=== PATIENT | male | born 1940 | race Two or more races ===

== ENCOUNTER 2020-06-11 05:32 | Inpatient (IN) | payer OTHER ==
[~2020-06-11] VITALS: Ht 172.7 cm; Wt 76.4 kg
[2020-06-11] MEDS ORDERED: ASPirin 81 mg TAB PO ONE ×2 (07:00)
[2020-06-11] MEDS ORDERED: MORPHINE SULF INJ 2 MG/ML SYRINGE 1ML IV ONE ×2 (07:15→08:30)
[2020-06-11] MEDS ORDERED: ONDANSETRON HCL 4 MG/2 ML VIAL IV ONE ×2 (07:15→08:30)
[2020-06-11 07:52] LABS: Basophils # (auto) 0 10 ^3/uL (0-0.2); Basophils % (auto) 0.1 % (0.0-2.0); Eosinophils # (auto) 0 10 ^3/uL (0-0.8); Eosinophils % (auto) 0.2 % (0.0-7.0); Hematocrit 48.7 % (41.0-53.0); Hemoglobin 17.1 g/dL (13.5-17.5); Lymphocytes # (auto) 0.5 10 ^3/uL (0.4-5.4); Lymphocytes % (auto) 5.3 % (10.0-50.0); Mean Corpuscular Hemoglobin 31.8 pg (28.0-32.0); Mean Corpuscular Hgb Conc. 35.1 g/dL (32.0-36.0); Mean Corpuscular Volume 90.4 fL (80.0-100.0); Monocytes # (auto) 0.7 10 ^3/uL (0-1.3); Monocytes % (auto) 6.7 % (0.0-12.0); Neutrophils # (auto) 8.9 10 ^3/uL (1.6-8.6); Neutrophils % (auto) 87.7 % (37.0-80.0); Nucleated Red Blood Cells % 0.1 %; Platelet Count (auto) 235 10^3/uL (140-450); Red Blood Cells 5.38 10^6/uL (4.5-5.90); Red Cell Distribution Width 13.7 % (11.8-14.3); White Blood Cell 10.1 10^3/uL (4.4-10.8)
[2020-06-11 08:07] LABS: INR 1.11 (0.9-1.15); Partial Thromboplastin Time 22.4 sec (23.0-31.2); Potassium 4.7 mmol/L (3.5-5.1)
[2020-06-11 08:17] LABS: Albumin 3.9 g/dL (3.4-5.0); BUN/Creatinine Ratio 18.8; Bilirubin, Total 0.9 mg/dL (0.2-1.0); Calcium 9.1 mg/dL (8.5-10.1); Total Protein 7.4 g/dL (6.4-8.2)
[2020-06-11] MEDS ORDERED: HEPARIN SODIUM (PORCINE) 5000 UNITS/ML 1ML VIAL IV ONE (10:00)
[2020-06-11] MEDS ORDERED: ANGIOMAX 250 MG VIAL IV ONE ×2 (10:18→11:47)
[2020-06-11] MEDS ORDERED: ADENOSINE 6 MG/2 ML INJ IV ONE (10:18)
[2020-06-11] MEDS ORDERED: ATROPINE SULF 1 MG/10ml SYR ONE (10:18)
[2020-06-11] MEDS ORDERED: fentaNYL CITRATE 100 MCG/2 ML VL ONE (10:18)
[2020-06-11] MEDS ORDERED: SODIUM CHL 0.9% 50 ML ONE ×2 (10:19→11:48)
[2020-06-11] MEDS ORDERED: MIDAZOLAM HCL 1MG/1ML-2 ML VIAL ONE (10:19)
[2020-06-11] MEDS ORDERED: EPINEPHrine HCL 1 MG/10 ML SYRG ONE (10:19)
[2020-06-11] MEDS ORDERED: LIDOCAINE 2%HCL (LOCAL ANESTH.) INJ 20ML MDV ONE (10:22)
[2020-06-11] MEDS ORDERED: IODIXANOL 320MG/ML 100ML BTL IV ONE ×3 (10:23→11:37)
[2020-06-11] MEDS ORDERED: EPTIFIBATIDE INJ (2MG/ML) 10ML VIAL IV ONE (11:02)
[2020-06-11] MEDS ORDERED: niCARdipine 25 MG/10 ML VIAL IV ONE (11:11)
[2020-06-11] MEDS ORDERED: ONDANSETRON HCL 4 MG/2 ML VIAL ONE (11:51)
[2020-06-11] MEDS ORDERED: TICAGRELOR 90 MG TAB ONE (11:58)
[2020-06-11] MEDS ORDERED: ASPirin 81 mg TAB ONE ×2 (12:04→12:05)
[2020-06-11] MEDS ORDERED: MORPHINE SULF INJ 2 MG/ML SYRINGE 1ML IV PRN (12:45)
[2020-06-11] MEDS ORDERED: NITROGLYCERIN 0.4 MG SL TAB SL PRN (12:45)
[2020-06-11 13:15] VITALS: BP 138/78
[2020-06-11] MEDS ORDERED: AMLO5TAB15 PO (13:47)
[2020-06-11] MEDS ORDERED: LEVO25TA49 PO (13:47)
[2020-06-11] MEDS ORDERED: ONDANSETRON HCL 4 MG/2 ML VIAL IV PRN (14:00)
[2020-06-11] MEDS ORDERED: ACETAMINOPHEN 500 MG TAB PO PRN (14:00)
[2020-06-11 17:00] VITALS: BP 122/72
[2020-06-11] MEDS: LISINOPRIL 5 MG TAB PO SCH (21:13)
[2020-06-11] MEDS: ATORVASTATIN 20 MG TAB PO SCH (21:13)
[2020-06-11 22:00] VITALS: BP 130/76
[2020-06-12 05:00] VITALS: BP 125/77
[2020-06-12] MEDS: LEVOTHYROXINE SODIUM 25 MCG TAB PO SCH (06:12)
[2020-06-12 06:41] LABS: Basophils # (auto) 0 10 ^3/uL (0-0.2); Basophils % (auto) 0.2 % (0.0-2.0); Eosinophils # (auto) 0 10 ^3/uL (0-0.8); Eosinophils % (auto) 0.3 % (0.0-7.0); Lymphocytes # (auto) 0.8 10 ^3/uL (0.4-5.4); Lymphocytes % (auto) 6.6 % (10.0-50.0); Mean Corpuscular Hemoglobin 32.1 pg (28.0-32.0); Mean Corpuscular Hgb Conc. 35.5 g/dL (32.0-36.0); Mean Corpuscular Volume 90.5 fL (80.0-100.0); Monocytes # (auto) 1.2 10 ^3/uL (0-1.3); Monocytes % (auto) 9.7 % (0.0-12.0); Neutrophils # (auto) 10.1 10 ^3/uL (1.6-8.6); Neutrophils % (auto) 83.2 % (37.0-80.0); Platelet Count (auto) 221 10^3/uL (140-450); Red Blood Cells 4.97 10^6/uL (4.5-5.90); Red Cell Distribution Width 13.6 % (11.8-14.3); White Blood Cell 12.2 10^3/uL (4.4-10.8)
[2020-06-12 07:00] LABS: Calcium 8.3 mg/dL (8.5-10.1); Potassium 3.8 mmol/L (3.5-5.1)
[2020-06-12 07:03] LABS: BUN/Creatinine Ratio 19.8
[2020-06-12 09:00] VITALS: BP 129/84
[2020-06-12] MEDS: TICAGRELOR 90 MG TAB PO SCH ×2 (09:15→21:10)
[2020-06-12] MEDS: ASPirin-EC 81 mg tab PO SCH (09:15)
[2020-06-12] MEDS: LISINOPRIL 5 MG TAB PO SCH ×2 (09:15→21:10)
[2020-06-12 12:58] VITALS: BP 156/85
[2020-06-12] MEDS: HYDROcodone-ACET 5/325MG TAB PO PRN ×2 (16:45→23:49)
[2020-06-12 17:15] VITALS: BP 155/87
[2020-06-12] MEDS: ATORVASTATIN 20 MG TAB PO SCH (21:10)
[2020-06-12 22:00] VITALS: BP 133/90
[2020-06-13 05:00] VITALS: BP 111/71
[2020-06-13] MEDS: LEVOTHYROXINE SODIUM 25 MCG TAB PO SCH (06:02)
[2020-06-13 09:15] VITALS: BP 121/84
[2020-06-13] MEDS: METOPROLOL TARTRATE 25 MG TAB PO SCH ×3 (09:35→21:34)
[2020-06-13] MEDS: TICAGRELOR 90 MG TAB PO SCH ×2 (09:35→21:33)
[2020-06-13] MEDS: ASPirin-EC 81 mg tab PO SCH (09:35)
[2020-06-13] MEDS: LISINOPRIL 5 MG TAB PO SCH ×2 (09:35→21:33)
[2020-06-13] MEDS: ENOXAPARIN SOD 80 MG/0.8ML SYRINGE SC SCH ×2 (09:35→21:34)
[2020-06-13 13:00] VITALS: BP 113/77
[2020-06-13 17:01] VITALS: BP 109/83
[2020-06-13] MEDS: ATORVASTATIN 20 MG TAB PO SCH (21:33)
[2020-06-13 22:00] VITALS: BP 116/73
[2020-06-14 05:00] VITALS: BP 107/68
[2020-06-14] MEDS: METOPROLOL TARTRATE 25 MG TAB PO SCH ×3 (06:11→23:01)
[2020-06-14] MEDS: LEVOTHYROXINE SODIUM 25 MCG TAB PO SCH (06:11)
[2020-06-14 08:00] VITALS: BP 122/76
[2020-06-14 09:00] VITALS: BP 122/76
[2020-06-14] MEDS: LISINOPRIL 5 MG TAB PO SCH ×2 (09:50→23:02)
[2020-06-14] MEDS: TICAGRELOR 90 MG TAB PO SCH ×2 (09:50→22:00)
[2020-06-14] MEDS: ASPirin-EC 81 mg tab PO SCH (09:50)
[2020-06-14] MEDS: ENOXAPARIN SOD 80 MG/0.8ML SYRINGE SC SCH (09:51)
[2020-06-14 13:00] VITALS: BP 135/81
[2020-06-14 17:00] VITALS: BP 129/81
[2020-06-14 19:42] LABS: INR 1.2 (0.9-1.15); Partial Thromboplastin Time 29.6 sec (23.0-31.2)
[2020-06-14 22:00] VITALS: BP 131/79
[2020-06-14] MEDS: ATORVASTATIN 20 MG TAB PO SCH (23:02)
[2020-06-15] VITALS (8 sets, daily range): BP systolic 110–146; BP diastolic 77–93
[2020-06-15] MEDS ORDERED: VANCOMYCIN 1GM/250ML 250 ML IV ONE ×2 (06:00→09:09)
[2020-06-15] MEDS: METOPROLOL TARTRATE 25 MG TAB PO SCH ×3 (06:00→21:23)
[2020-06-15] MEDS: LEVOTHYROXINE SODIUM 25 MCG TAB PO SCH (06:14)
[2020-06-15] MEDS ORDERED: ATROPINE SULF 1 MG/10ml SYR ONE (09:16)
[2020-06-15] MEDS ORDERED: VANCOMYCIN HCL 1000 MG VL ONE ×2 (09:16→10:49)
[2020-06-15] MEDS ORDERED: IOHEXOL 350 MG/ML 100ML IJ ONE (09:17)
[2020-06-15] MEDS ORDERED: LIDOCAINE 2%HCL (LOCAL ANESTH.) INJ 20ML MDV ONE (09:17)
[2020-06-15] MEDS ORDERED: MIDAZOLAM HCL 1MG/1ML-2 ML VIAL ONE (09:17)
[2020-06-15] MEDS ORDERED: fentaNYL CITRATE 100 MCG/2 ML VL ONE (09:17)
[2020-06-15] MEDS ORDERED: ceFAZolin 1GM/50ML 50 ML IV ONE (11:17)
[2020-06-15] MEDS ORDERED: DIGOXIN (250MCG/ML) 2 ML AMPULE IV ONE (11:45)
[2020-06-15] MEDS: ASPirin-EC 81 mg tab PO SCH (13:19)
[2020-06-15] MEDS: TICAGRELOR 90 MG TAB PO SCH ×2 (13:19→21:22)
[2020-06-15] MEDS: LISINOPRIL 5 MG TAB PO SCH ×2 (13:23→21:24)
[2020-06-15] MEDS: AMIODARONE HCL 200 MG TAB PO SCH (13:24)
[2020-06-15] MEDS ORDERED: METOPROLOL TARTRATE 1MG/1ML-5ML VIAL IV ONE (15:30)
[2020-06-15] MEDS ORDERED: AMIODARONE HCL 150 MG in D5W 5% 100 ML IV ONE (15:30)
[2020-06-15] MEDS: DIGOXIN (250MCG/ML) 2 ML AMPULE IV SCH ×2 (15:56→20:06)
[2020-06-15] MEDS: ceFAZolin 1GM/50ML 50 ML IV SCH (17:12)
[2020-06-15] MEDS: ATORVASTATIN 20 MG TAB PO SCH (21:22)
[2020-06-16] MEDS: ceFAZolin 1GM/50ML 50 ML IV SCH ×2 (01:00→10:29)
[2020-06-16 05:00] VITALS: BP 117/45
[2020-06-16] MEDS: METOPROLOL TARTRATE 25 MG TAB PO SCH ×2 (06:34→14:00)
[2020-06-16] MEDS: LEVOTHYROXINE SODIUM 25 MCG TAB PO SCH (06:34)
[2020-06-16 08:00] VITALS: BP 108/74
[2020-06-16 09:00] VITALS: BP 108/74
[2020-06-16] MEDS ORDERED: DIGOXIN 0.125 MG TAB PO SCH (10:00)
[2020-06-16] MEDS: LISINOPRIL 5 MG TAB PO SCH (10:00)
[2020-06-16] MEDS: TICAGRELOR 90 MG TAB PO SCH (10:29)
[2020-06-16] MEDS: AMIODARONE HCL 200 MG TAB PO SCH (10:29)
[2020-06-16] MEDS: ASPirin-EC 81 mg tab PO SCH (10:30)
[2020-06-16 13:00] VITALS: BP 116/76
[2020-06-16 14:54] VITALS: BP 108/74
[2020-06-16] MEDS ORDERED: AMIODARONE HCL 150 MG in D5W 5% 100 ML IV ONE (15:30)
== END 2020-06-16 17:40 | disposition home or self-care (01) | DRG 244 ==
LOC: ER 05:32 → TELE 05:33 → TELE-WESTW 14:21
PROVIDERS: ADMIT Specialist; ATTEND Specialist
PROC: 027035Z Dilation of Coronary Artery, One Artery with Two Drug-eluting Intraluminal Devices, Percutaneous Approach (ICD-10-PCS; principal; 2020-06-11)
PROC: 02C13ZZ Extirpation of Matter from Coronary Artery, Two Arteries, Percutaneous Approach (ICD-10-PCS; 2020-06-11)
PROC: 3E073PZ Introduction of Platelet Inhibitor into Coronary Artery, Percutaneous Approach (ICD-10-PCS; 2020-06-11)
PROC: B41C1ZZ Fluoroscopy of Pelvic Arteries using Low Osmolar Contrast (ICD-10-PCS; 2020-06-11)
PROC: B2111ZZ Fluoroscopy of Multiple Coronary Arteries using Low Osmolar Contrast (ICD-10-PCS; 2020-06-12)
PROC: B2151ZZ Fluoroscopy of Left Heart using Low Osmolar Contrast (ICD-10-PCS; 2020-06-12)
PROC: 4A023N7 Measurement of Cardiac Sampling and Pressure, Left Heart, Percutaneous Approach (ICD-10-PCS; 2020-06-12)
PROC: 0JH606Z Insertion of Pacemaker, Dual Chamber into Chest Subcutaneous Tissue and Fascia, Open Approach (ICD-10-PCS; 2020-06-15)
PROC: 02HK3JZ Insertion of Pacemaker Lead into Right Ventricle, Percutaneous Approach (ICD-10-PCS; 2020-06-15)
PROC: 02H63JZ Insertion of Pacemaker Lead into Right Atrium, Percutaneous Approach (ICD-10-PCS; 2020-06-15)
PROC: B5171ZZ Fluoroscopy of Left Subclavian Vein using Low Osmolar Contrast (ICD-10-PCS; 2020-06-15)
DX: I21.19 ST elevation (STEMI) myocardial infarction involving other coronary artery of inferior wall (principal); I24.9 Acute ischemic heart disease, unspecified; I10 Essential (primary) hypertension; I49.5 Sick sinus syndrome; Z87.891 Personal history of nicotine dependence; I48.91 Unspecified atrial fibrillation; I25.10 Atherosclerotic heart disease of native coronary artery without angina pectoris; Z79.82 Long term (current) use of aspirin
CPT/HCPCS: 33208; 36415; 71045; 75710; 80048; 80053; 80061; 82962; 83036; 84443; 84484; 85025; 85610; 85730; 92933; 92934; 93005; 93458; 96374; 96375; 99152; 99153; 99291; C1785; C1874; G0378; J0153; J0690; J2250; J2405; J7060; Q9967

== ENCOUNTER 2025-04-20 08:46 | Emergency (ER) | payer OTHER ==
[~2025-04-20] VITALS: Ht 175.3 cm; Wt 77.5 kg
[~2025-04-20 08:46] MED LIST: LEVO25TA2 PO
[2025-04-20] MEDS ORDERED: SODIUM CHLORIDE 0.9% 1,000 ML IV ONE ×2 (09:00)
[2025-04-20] MEDS ORDERED: VANCOMYCIN 1GM/200ML PM 200 ML IV ONE (09:00)
[2025-04-20 09:13] VITALS: BP 154/115; TEMP 98
[2025-04-20 09:21] LABS: Basophils # (auto) 0 10 ^3/uL (0-0.2); Basophils % (auto) 0.2 % (0.0-2.0); Eosinophils # (auto) 0.1 10 ^3/uL (0-0.8); Hematocrit 47.1 % (41.0-53.0); Hemoglobin 15.9 g/dL (13.5-17.5); Lymphocytes # (auto) 1.3 10 ^3/uL (0.4-5.4); Lymphocytes % (auto) 19.1 % (10.0-50.0); Mean Corpuscular Hemoglobin 31.1 pg (28.0-32.0); Mean Corpuscular Hgb Conc. 33.9 g/dL (32.0-36.0); Mean Corpuscular Volume 91.8 fL (80.0-100.0); Monocytes # (auto) 0.6 10 ^3/uL (0-1.3); Monocytes % (auto) 8.9 % (0.0-12.0); Neutrophils # (auto) 4.8 10 ^3/uL (1.6-8.6); Neutrophils % (auto) 70.8 % (37.0-80.0); Platelet Count (auto) 211 10^3/uL (140-450); Red Blood Cells 5.13 10^6/uL (4.5-5.90); Red Cell Distribution Width 13.5 % (11.8-14.3); White Blood Cell 6.7 10^3/uL (4.4-10.8)
[2025-04-20 09:27] VITALS: PULSE 74; RESP 21; O2SAT 95
[2025-04-20 09:32] LABS: Alanine Aminotransferase 15 U/L (7-40); Albumin 4.4 g/dL (3.2-4.8); Alkaline Phosphatase 72 U/L (46-116); Anion Gap 7 (5-15); Aspartate Aminotransferase 17 U/L (13-40); BUN/Creatinine Ratio 12.4 (10.0-20.0); Blood Urea Nitrogen 15 mg/dL (9-23); Carbon Dioxide 26 mmol/L (20-31); Chloride 105 mmol/L (98-107); Potassium 4.7 mmol/L (3.5-5.1); Sodium 138 mmol/L (136-145); Total Protein 6.8 g/dL (5.7-8.2)
[2025-04-20 09:33] LABS: INR 1.19 (0.9-1.15); Prothrombin Time 12.4 sec (9.3-11.8)
--- NOTE | 2025-04-20 09:35 | DVH ---
EXAM: XY CHEST PORTABLE Indication: sob Technique: Single frontal view of the chest was obtained Comparison: CHEST XRAY 1 VIEW on DOS: 06/16/20, CHEST PORTABLE on DOS: 06/15/20, CHEST PORTABLE on DOS: 06/11/20 FINDINGS: Lines and Tubes: Cardiac pacemaker projects over left chest wall. Lungs: Mild pulmonary edema. Pleura: No effusion. No pneumothorax. Cardiomediastinal contours: Unremarkable Bones: No acute osseous abnormality. IMPRESSION: Pulmonary edema.
[2025-04-20 09:40] LABS: Bilirubin, Total 1.3 mg/dL (0.2-1.0); Glucose 157 mg/dL (74-106)
--- NOTE | 2025-04-20 09:58 | ECG ---
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
--- NOTE | 2025-04-20 10:16 | ED.PDOC ---
History of Present Illness HPI Comments 84-year-old male presents to the ER with prior medical history of hypertension; surgical history of pacemaker, stents X2 you complain of chest pain. Patient reports on having his pacemaker through settings changed on April 06 2025 and had severe chest pain for seven days with shortness a breath and back pain for which all the pain has been mild but constant now. Denies chills, fever, N/V/D. No other associated symptoms, modifiers, recent injuries or sick contacts present at this time. Chief Complaint: Chest Pain Time Seen by MD: 09:30 Primary Care Provider: UNKNOWN Reviewed Notes: Nurses Notes, Medications, Allergies Allergies: Coded Allergies: NO KNOWN ALLERGIES (Unverified , 06/11/20) Home Meds Reported Medications Levothyroxine Sodium (Synthroid) 25 Mcg Tab, 1 TAB PO DAILY, #30 TAB 5 Refills 06/11/20 Information Source: Patient Mode of Arrival: Ambulatory Severity: Moderate Duration: Since onset Prehospital treatment: None Past Medical History PAST MEDICAL HISTORY: HTN Surgical History: Pacemaker Surgical History (Other): StentX2 Family History Family History: Reviewed,noncontributory to illness, Unknown Social History Smoker: Non-Smoker Alcohol: Denies ETOH Use Drugs: Denies Drug Use Lives In: Home Constitutional: denies: chills, diaphoresis, fatigue, fever, malaise, sweats, weakness, others EENTM: denies: blurred vision, double vision, ear bleeding, ear discharge, ear drainage, ear pain, ear ringing, eye pain, eye redness, hearing loss, mouth pain, mouth swelling, nasal discharge, nose bleeding, nose congestion, nose pain, photophobia, tearing, throat pain, throat swelling, voice changes, others Respiratory: reports: shortness of breath; denies: cough, hemoptysis, orthopnea, SOB at rest, SOB with excertion, stridor, wheezing, others Cardiovascular: reports: chest pain; denies: dizzy spells, diaphoresis, Dyspnea on exertion, edema, irregular heart beat, left arm pain, lightheadedness, palpitations, PND, syncope, others Gastrointestinal: denies: abdomen distended, abdominal pain, blood streaked bowels, constipated, diarrhea, dysphagia, difficulty swallowing, hematemesis, melena, nausea, poor appetite, poor fluid intake, rectal bleeding, rectal pain, vomiting, others Genitourinary: denies: burning, dysuria, flank pain, frequency, hematuria, incontinence, penile discharge, penile sore, pain, testicle pain, testicle swelling, urgency, others Neurological: denies: dizziness, fainting, headache, left sided numbness, left sided weakness, numbness, paresthesia, pre-existing deficit, right sided numbness, right sided weakness, seizure, speech problems, tingling, tremors, weakness, others Musculoskeletal: reports: back pain; denies: gout, joint pain, joint swelling, muscle pain, muscle stiffness, neck pain, others Integumetry: denies: bruises, change in color, change in hair/nails, dryness, laceration, lesions, lumps, rash, wounds, others Allergic/Immunocompromised: denies: Difficulty Healing, Frequent Infections, Hives, Itching, others Hematologic/Lymphatic: denies: anemia, blood clots, easy bleeding, easy bruising, swollen glands, others Endocrine: denies: excessive hunger, excessive sweating, excessive thirst, excessive urination, flushing, intolerance to cold, intolerance to heat, unexplained weight gain, unexplained weight loss, others Psychiatric: denies: anxiety, bipolar disorder, depression, hopeless, panic disorder, schizophrenia, sleepless, suicidal, others All Other Systems: Reviewed and Negative Physical Exam General Appearance: Moderate Distress, Normal HEENT: Normal ENT Inspection, Pharynx Normal, TMs Normal Neck: Full Range of Motion, Non-Tender, Normal, Normal Inspection Respiratory: Chest Non-Tender, Lungs Clear, No Accessory Muscle Use, No Respi ratory Distress, Normal Breath Sounds Cardiovascular: No Edema, No JVD, No Murmur, No Gallop, Normal Peripheral Pulses, Regular Rate/Rhythm Breast Exam: Deferred Gastrointestinal: No Organomegaly, Non Tender, No Pulsatile Mass, Normal Bowel Sounds, Soft Genitalia: Deferred Pelvic: Deferred Rectal: Deferred Extremities: No calf tenderness, Normal capillary refill, Normal inspection, Normal range of motion, Non-tender, No pedal edema Musculoskeletal : Apperance: Normal Neurologic: Alert, woodyard operator II-XII nml as Tested, No Motor Deficits, Normal Affect, Normal Mood, No Sensory Deficits Cerebellar Function: Normal Reflexes: Normal Skin: Dry, Normal Color, Warm Peripheral Pulses: 3+ Radial (R), 3+ Radial (L) Lymphatic: No Adenopathy Was a procedure done? Was a procedure done?: No EKG EKG : Pulse Rate (adult): 75 [place]: Normal Cardiac Rhythm: NSR Block: None Hypertrophy: None ST: Normal Differential Dx Considerations may include: Musculoskeletal Electrolyte imbalance X-Ray, Labs, Meds, VS Vital Signs Date Time Temp Pulse Resp B/P (MAP) Pulse Ox O2 Delivery O2 Flow Rate FiO2 04/20/25 10:27 75 04/20/25 09:57 80 04/20/25 09:27 74 21 95 Room Air* 0 21 04/20/25 09:13 98.0 74 21 154/115 (128) 95 98.0 04/20/25 09:00 97.8 72 19 159/103 (121) 98 97.8 04/20/25 08:53 75 Lab Test 04/20/25 10:05 04/20/25 08:56 Range/Units Troponin I High Sensitivity 4 4 </=54 ng/L White Blood Count 6.7 4.4-10.8 10^3/uL Red Blood Count 5.13 4.5-5.90 10^6/uL Hemoglobin 15.9 13.5-17.5 g/dL Hematocrit 47.1 41.0-53.0 % Mean Corpuscular Volume 91.8 80.0-100.0 fL Mean Corpuscular Hemoglobin 31.1 28.0-32.0 pg Mean Corpuscular Hemoglobin Concent 33.9 32.0-36.0 g/dL Red Cell Distribution Width 13.5 11.8-14.3 % Platelet Count 211 140-450 10^3/uL Mean Platelet Volume 8.3 6.9-10.8 fL Neutrophils (%) (Auto) 70.8 37.0-80.0 % Lymphocytes (%) (Auto) 19.1 10.0-50.0 % Monocytes (%) (Auto) 8.9 0.0-12.0 % Eosinophils (%) (Auto) 1.0 0.0-7.0 % Basophils (%) (Auto) 0.2 0.0-2.0 % Neutrophils # (Auto) 4.8 1.6-8.6 10 ^3/uL Lymphocytes # (Auto) 1.3 0.4-5.4 10 ^3/uL Monocytes # (Auto) 0.6 0-1.3 10 ^3/uL Eosinophils # (Auto) 0.1 0-0.8 10 ^3/uL Basophils # (Auto) 0 0-0.2 10 ^3/uL Nucleated Red Blood Cells 0.0 % Prothrombin Time 12.4 H 9.3-11.8 sec Prothrombin Time INR 1.19 H 0.9-1.15 Activated Partial Thromboplast Time 26.0 24.5-34.5 SEC Sodium Level 138 136-145 mmol/L Potassium Level 4.7 3.5-5.1 mmol/L Chloride Level 105 98-107 mmol/L Carbon Dioxide Level 26 20-31 mmol/L Anion Gap 7 5-15 Blood Urea Nitrogen 15 9-23 mg/dL Creatinine 1.21 0.700-1.30 mg/dL Glomerular Filtration Rate Calc 60 >90 mL/min BUN/Creatinine Ratio 12.4 10.0-20.0 Serum Glucose 157 H 74-106 mg/dL Calcium Level 10.0 8.7-10.4 mg/dL Total Bilirubin 1.3 H 0.2-1.0 mg/dL Aspartate Amino Transferase (AST) 17 13-40 U/L Alanine Aminotransferase (ALT) 15 7-40 U/L Alkaline Phosphatase 72 46-116 U/L Total Protein 6.8 5.7-8.2 g/dL Albumin 4.4 3.2-4.8 g/dL Patient alert. Complaining of chest discomfort. Vitals stable. Answering questions. WBC within normal limits. Hemoglobin within normal limits. Cardiac marker within normal limits. Blood pressure elevated. Was given clonidine. He states the chest pain resolved after coming to the ER. No leg swelling. No shortness a breath. Explained to the patient. Was told to follow up with his primary care physician. Was told to come back if there is any problem. Time of 1ST Reevaluation: 10:00 Reevaluation 1ST: Improved Patient Education/Counseling: Diagnosis, Treatment, Prognosis Family Education/Counseling: No Family Present SEPSIS Sepsis Screen Date sepsis recognized/suspect: Apr 20, 2025 Time Sepsis recognized/suspect: 958 Recent Procedure: No On Antibiotic Therapy: No Respiratory Rate >20: No Heart Rate >90: No Temp<36 C (96.8 F) or >38.3 C: No SBP <90 or MAP <65 mmHG: No New Acute Mental Status Change: No Is the patient on CPAP, BIPAP,: No Physician Orders Troponin-I Hs (04/20/25 11:50) Electrocardigram (04/20/25 09:50) Electrocardigram (04/20/25 11:50) Chest Portable (04/20/25 09:00) Vital Signs Date Time Temp Pulse Resp B/P (MAP) Pulse Ox O2 Delivery O2 Flow Rate FiO2 04/20/25 10:27 75 04/20/25 09:57 80 04/20/25 09:27 74 21 95 Room Air* 0 21 04/20/25 09:13 98.0 74 21 154/115 (128) 95 98.0 04/20/25 09:00 97.8 72 19 159/103 (121) 98 97.8 04/20/25 08:53 75 Laboratory Tests Test 04/20/25 08:56 White Blood Count 6.7 10^3/uL (4.4-10.8) Departure 1 Departure Time of Disposition: 11:21 Impression: Primary Impression: Hypertensive urgency Additional Impression: Musculoskeletal chest pain Disposition: 01 HOME / SELF CARE / HOMELESS Condition: Good Discharged With: Self Critical Care Note Critical Care Time?: Yes (45 min-critical care time only) Critical care comment: Monitor blood pressure Stability Stability form required: No Heart Score Heart Score: Heart Score Response (Comments) Value History Slightly Suspicious 0 EKG Normal 0 Age >65 2 Risk Factors >3 or Hx ASHD 2 Troponin Normal limit 0 Total 4 I personally scribed for JOHNNA WHIPPLE MD ([email or web address]) on 04/20/25 at 10:16. Electronically submitted by David Khan ([email or web address]). I personally scribed for JOHNNA WHIPPLE MD ([email or web address]) on 04/20/25 at 10:27. Electronically submitted by David Khan ([email or web address]). JOHNAN WHIPPLE MD Apr 20, 2025 10:16
[2025-04-20 10:27] VITALS: PULSE 75
--- NOTE | 2025-04-20 11:11 | DVHINCON2 ---
Date of service: Apr 20, 2025 Family History: FH: heart attack G8 MOTHER FH: stroke G8 FATHER Allergies: Coded Allergies: NO KNOWN ALLERGIES (Unverified , 06/11/20) Home Meds Reported Medications Levothyroxine Sodium (Synthroid) 25 Mcg Tab, 1 TAB PO DAILY, #30 TAB 5 Refills 06/11/20 Current Medications Current Medications Medications (Trade) Dose Ordered Sig/Vinicio Route PRN Reason Start Time Stop Time Status Last Admin Cefepime HCl 50 ml @ 12.5 mls/hr Q8HR IV 04/20/25 14:00 04/20/25 09:12 DC Vital Signs Vital Signs Date Time Temp Pulse Resp B/P (MAP) Pulse Ox O2 Delivery O2 Flow Rate FiO2 04/20/25 10:27 75 04/20/25 09:27 21 95 Room Air* 0 21 04/20/25 09:13 98.0 154/115 (128) 98.0 Labs/Diagnostic Data Labs Test 04/20/25 10:05 04/20/25 08:56 Range/Units Troponin I High Sensitivity 4 </=54 ng/L White Blood Count 6.7 4.4-10.8 10^3/uL Red Blood Count 5.13 4.5-5.90 10^6/uL Hemoglobin 15.9 13.5-17.5 g/dL Hematocrit 47.1 41.0-53.0 % Mean Corpuscular Volume 91.8 80.0-100.0 fL Mean Corpuscular Hemoglobin 31.1 28.0-32.0 pg Mean Corpuscular Hemoglobin Concent 33.9 32.0-36.0 g/dL Red Cell Distribution Width 13.5 11.8-14.3 % Platelet Count 211 140-450 10^3/uL Mean Platelet Volume 8.3 6.9-10.8 fL Neutrophils (%) (Auto) 70.8 37.0-80.0 % Lymphocytes (%) (Auto) 19.1 10.0-50.0 % Monocytes (%) (Auto) 8.9 0.0-12.0 % Eosinophils (%) (Auto) 1.0 0.0-7.0 % Basophils (%) (Auto) 0.2 0.0-2.0 % Neutrophils # (Auto) 4.8 1.6-8.6 10 ^3/uL Lymphocytes # (Auto) 1.3 0.4-5.4 10 ^3/uL Monocytes # (Auto) 0.6 0-1.3 10 ^3/uL Eosinophils # (Auto) 0.1 0-0.8 10 ^3/uL Basophils # (Auto) 0 0-0.2 10 ^3/uL Nucleated Red Blood Cells 0.0 % Prothrombin Time 12.4 H 9.3-11.8 sec Prothrombin Time INR 1.19 H 0.9-1.15 Activated Partial Thromboplast Time 26.0 24.5-34.5 SEC Sodium Level 138 136-145 mmol/L Potassium Level 4.7 3.5-5.1 mmol/L Chloride Level 105 98-107 mmol/L Carbon Dioxide Level 26 20-31 mmol/L Anion Gap 7 5-15 Blood Urea Nitrogen 15 9-23 mg/dL Creatinine 1.21 0.700-1.30 mg/dL Glomerular Filtration Rate Calc 60 >90 mL/min BUN/Creatinine Ratio 12.4 10.0-20.0 Serum Glucose 157 H 74-106 mg/dL Calcium Level 10.0 8.7-10.4 mg/dL Total Bilirubin 1.3 H 0.2-1.0 mg/dL Aspartate Amino Transferase (AST) 17 13-40 U/L Alanine Aminotransferase (ALT) 15 7-40 U/L Alkaline Phosphatase 72 46-116 U/L Total Protein 6.8 5.7-8.2 g/dL Albumin 4.4 3.2-4.8 g/dL ALEXANDR KIM MD Apr 20, 2025 11:11
[2025-04-20] MEDS: cloNIDine HCL 0.1 MG TAB PO ONE (11:30)
[2025-04-20] MEDS ORDERED: CEFEPIME 1GM/ 50ML 50 ML IV SCH (14:00)
--- NOTE | 2025-04-22 08:53 | ECG ---
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
== END 2025-04-20 12:06 | disposition home or self-care (01) ==
LOC: ER 08:46
DX: I16.0 Hypertensive urgency (principal); R07.89 Other chest pain; Z95.0 Presence of cardiac pacemaker
CPT/HCPCS: 36415; 71045; 80053; 84484; 85025; 85610; 85730; 93005